=== PATIENT | male | born 1935 | race Caucasian/White ===

== ENCOUNTER 2016-08-13 21:12 | Emergency (ER) | payer MEDICARE, BC ==
[~2016-08-13] VITALS: Ht 172.7 cm; Wt 70.5 kg
[2016-08-13 21:17] VITALS: Ht 172.7 cm; Wt 70.5 kg
[2016-08-13 22:05] LABS: ADD SCAN DIFF NO
--- NOTE | 2016-08-13 22:14 | RADRPT ---
PROCEDURE: XR Chest. CLINICAL INDICATION: Abdominal pain. TECHNIQUE: Single frontal view of the chest was obtained COMPARISON: None FINDINGS: Cardiomegaly and atherosclerotic calcifications in the thoracic aorta. Mild attenuation at the left lung base likely represents overlying soft tissues. The lungs are otherwise clear. There is no pleural effusion or pneumothorax. IMPRESSION: No acute disease. RPTAT: UU Physician Pat Date Time Electronically viewed and signed by Physician Pat on 08/13/2016 22:14 RS/
[2016-08-13 22:17] LABS: BASOPHILS % 0.4 % (0.0-2.0); EOSINOPHILS # 0.1 10^3/ul (0.0-0.5); EOSINOPHILS % 1.2 % (0.0-7.0); HEMATOCRIT 50.1 % (42.0-52.0); HEMOGLOBIN 16.7 g/dl (14.0-18.0); LYMPHOCYTES # 0.7 10^3/ul (0.8-2.9); LYMPHOCYTES % 8.8 % (15.0-51.0); MEAN CORPUSCULAR HEMOGLOBIN 31.3 pg (29.0-33.0); MEAN CORPUSCULAR HGB CONC 33.3 g/dl (32.0-37.0); MEAN PLATELET VOLUME 9.6 fl (7.4-10.4); MONOCYTE # 1.1 10^3/ul (0.3-0.9); MONOCYTES % 12.7 % (0.0-11.0); NEUTROPHIL # 6.4 10^3/ul (1.6-7.5); NEUTROPHILS % 76.4 % (39.0-77.0); PLATELET COUNT 186 10^3/UL (140-415); RED BLOOD COUNT 5.33 10^6/ul (4.70-6.10); RED CELL DISTRIBUTION WIDTH 12.8 % (11.5-14.5); WHITE BLOOD COUNT 8.3 10^3/ul (4.8-10.8)
[2016-08-13 22:20] LABS: ALBUMIN 4.7 g/dl (3.3-4.9)
[2016-08-13 22:21] LABS: POTASSIUM 4.5 mmol/L (3.5-5.1)
[2016-08-13 22:23] LABS: ALBUMIN/GLOBULIN RATIO 1.27; BILIRUBIN,INDIRECT 0.4 mg/dl (0-1.1); BILIRUBIN,TOTAL 0.4 mg/dl (0.2-1.3); CREATININE 1.01 mg/dl (0.61-1.24); TOTAL PROTEIN 8.4 g/dl (6.1-8.1)
[2016-08-13 22:24] LABS: CALCIUM 9.6 mg/dl (8.4-10.2)
--- NOTE | 2016-08-13 22:24 | RADRPT ---
PROCEDURE: CT Head without contrast. CLINICAL INDICATION: Altered mental status TECHNIQUE: The study was performed utilizing a GE 64-slice multidetector CT scanner. Direct spiral axial CT images of the brain were obtained from the vertex to the skull base without contrast. Mariana nal and sagittal reformatted images are provided. The CTDI vol is 123.13 mGy and the DLP is 749.79 m Gy-cm. The images were reviewed on a PACS workstation. COMPARISON: No prior studies are available for comparison. FINDINGS: Exam is limited secondary to motion artifact. Moderate diffuse atrophy is seen with a compensatory ventricular enlargement. Mild to moderate white matter disease in the periventricular and deep whit e matter is seen. Small chronic lacunar infarcts are seen in the left basal ganglia and right cerebe llar hemisphere. The marks-white matter differentiation is maintained. No intra or extra-axial flui d collection or mass effect or shift in the midline structures is seen. The visualized paranasal si nuses, mastoid air cells, orbits, and calvarium are unremarkable. Vascular calcifications are seen. IMPRESSION: 1. Limited examination secondary to motion artifact. Otherwise, no acute intracranial pathology. 2. Moderate diffuse volume loss and mild to moderate chronic microvascular ischemic changes. 3. Small left basal ganglia and right cerebellar hemisphere lacunar infarcts. RPTAT: HPNM Physician Michelle Date Time Electronically viewed and signed by Physician Michelle on 08/13/2016 22:24 /
[2016-08-13] MEDS ORDERED: AMLO-147 PO (22:28)
[2016-08-13] MEDS ORDERED: METO100T13 PO (22:28)
[2016-08-13] MEDS ORDERED: CELE100C PO (22:29)
[2016-08-13] MEDS ORDERED: EZET1TAB9 PO (22:29)
[2016-08-13] MEDS ORDERED: ASPI-664 PO (22:31)
[2016-08-13] MEDS ORDERED: HERB1CAP PO (22:32)
[2016-08-13] MEDS ORDERED: MIRA50TA PO (22:34)
[2016-08-13 22:35] LABS: TROPONIN-I 0.014 ng/ml (0.00-0.12)
[2016-08-13] MEDS ORDERED: CHOL100062 PO (22:35)
[2016-08-13] MEDS ORDERED: [UNRECOGNIZED DRUG - OTHER] PO (23:13)
--- NOTE | 2016-08-13 23:59 | ERD ---
ER Documentation Chief Complaint Date/Time DATE: 08/13/16 TIME: 23:58 Chief Complaint s/p fall X3 within 24-hour period,leaning towards left side,denies [place] HPI This is an 80-year-old male has fallen 3 times the past 24 hours secondary to weakness. Patient denies any headache or any focal neurologic complaints. Patient has history of old strokes in the past. Denies any fevers or chills. Denies any chest pain. Denies any other current issues. ROS All systems reviewed and are negative except as per history of present illness. Medications Home Meds Reported Medications [Ultra Supplements] No Conflict Check, 1 TAB PO DAILY 08/13/16 Cholecalciferol* (Vitamin D3*) 1,000 Unit Tablet, 1000 UNIT PO DAILY, TAB 08/13/16 Mirabegron (Myrbetriq) 50 Mg Tab.er.24h, 25 MG PO DAILY, TAB 08/13/16 Herbal Drugs (Colon Herbal Cleanser) 1 Each Capsule, 1 EACH PO DAILY, CAP 08/13/16 Aspirin* (Aspirin* EC) 81 Mg Tablet.dr, 81 MG PO DAILY, TAB 08/13/16 Celecoxib* (Celebrex*) 100 Mg Capsule, 100 MG PO BID, CAP 08/13/16 Ezetimibe/Simvastatin (Vytorin 10-20 mg Tablet) 1 Each Tablet, 1 EACH PO DAILY, TAB 08/13/16 Amlodipine Besylate* (Amlodipine Besylate*) 10 Mg Tablet, 10 MG PO DAILY, #30 TAB 08/13/16 Metoprolol Succinate* (Toprol XL*) 100 Mg Tab.sr.24h, 100 MG PO DAILY, #30 TAB 08/13/16 Allergies Allergies: Coded Allergies: No Known Allergy (Unverified , 08/13/16) PMhx/Soc History of Surgery: Yes (patient states about 10 surgeries, cant recall what) Anesthesia Reaction: No Hx Neurological Disorder: Yes (stroke) Hx Respiratory Disorders: No Hx Psychiatric Problems: No Hx Miscellaneous Medical Probl: Yes (prostate issues) Hx Alcohol Use: No Hx Substance Use: No Hx Tobacco Use: No Smoking Status: Never smoker Physical Exam Vitals Vital Signs Date Time Temp Pulse Resp B/P Pulse Ox O2 Delivery O2 Flow Rate FiO2 08/13/16 21:26 86 25 147/93 96 Room Air 08/13/16 21:17 98.2 86 21 147/93 97 Physical Exam Const: [] Head: Atraumatic Eyes: Normal Conjunctiva ENT: Normal External Ears, Nose and Mouth. Neck: Full range of motion..~ No meningismus. Resp: Clear to auscultation bilaterally Cardio: Regular rate and rhythm, no murmurs Abd: Soft, non tender, non distended. Normal bowel sounds Skin: No petechiae or rashes Back: No midline or flank tenderness Ext: No cyanosis, or edema Neur: Awake and alert Psych: Normal Mood and Affect Result Diagram: 08/13/16214408/13/162144 Results 24 hrs Laboratory Tests Test 08/13/16 21:15 08/13/16 21:45 Bedside Glucose 137mg/dL Alanine Aminotransferase (ALT/SGPT) 63IU/L Albumin 4.7g/dl Albumin/Globulin Ratio 1.27 Alkaline Phosphatase 74IU/L Anion Gap 20 Aspartate Amino Transf (AST/SGOT) 72IU/L Basophils # 0.010^3/ul Basophils % 0.4% Blood Urea Nitrogen 21mg/dl Calcium Level 9.6mg/dl Carbon Dioxide Level 25mmol/L Chloride Level 99mmol/L Creatinine 1.01mg/dl Direct Bilirubin 0.00mg/dl Eosinophils # 0.110^3/ul Eosinophils % 1.2% Globulin 3.70g/dl Glucose Level 134mg/dl Hematocrit 50.1% Hemoglobin 16.7g/dl Indirect Bilirubin 0.4mg/dl Lipase 49U/L Lymphocytes # 0.710^3/ul Lymphocytes % 8.8% Mean Corpuscular Hemoglobin 31.3pg Mean Corpuscular Hemoglobin Concent 33.3g/dl Mean Corpuscular Volume 94.0fl Mean Platelet Volume 9.6fl Monocytes # 1.110^3/ul Monocytes % 12.7% Neutrophils # 6.410^3/ul Neutrophils % 76.4% Nucleated Red Blood Cells # 0.010^3/ul Nucleated Red Blood Cells % 0.0/100WBC Platelet Count 55566^3/UL Potassium Level 4.5mmol/L Red Blood Count 5.3310^6/ul Red Cell Distribution Width 12.8% Sodium Level 139mmol/L Total Bilirubin 0.4mg/dl Total Protein 8.4g/dl Troponin I 0.014ng/ml White Blood Count 8.310^3/ul Current Medications Medications (Trade) Dose Ordered Sig/Fidelina Route PRN Reason Start Time Stop Time Status Last Admin Dose Admin Hydrocodone Bit/ Homatropine Methylb (Hycodan Liquid) 10 ml ONCE ONCE PO 08/14/16 00:00 08/14/16 00:01 Acetaminophen/ Codeine Phosphate (Tylenol/Codeine Liquid) 10 ml ONCE ONCE PO 08/14/16 00:00 08/14/16 00:01 08/13/16 23:53 Procedures/MDM EKG: Rate/Rhythm: Variable DC and QT intervals. Heart rate variable QRS, ST, T-waves: No changes consistent w/ acute ischemia Impression: Atrial fibrillation Chest X-ray 1V Interpreted by me: Soft Tissue: No acute abnormalities Bones: No acute abnormalities Mediastinum/Cardiac Silhouette/Lungs: No acute abnormalities Medical decision-making: A 1-year-old gentleman with what looks to be new onset A. fib. Patient will be admitted to telemetry to hospitalist. Departure Diagnosis: Primary Impression: Acute weakness Additional Impression: Atrial fibrillation, new onset Condition: Serious FELICE ODOM Aug 13, 2016 23:59
[2016-08-14] MEDS ORDERED: HYDROCODONE/HOMATROPINE 5ML CUP PO ONE
[2016-08-14] MEDS ORDERED: ACETAMINOPHEN/CODEINE 5 ML CUP PO ONE
--- NOTE | 2016-08-14 00:12 | HP ---
Date/Time of Note Date/Time of Note DATE: 08/14/16 TIME: 00:11 Assessment/Plan VTE Prophylaxis VTE Prophylaxis Intervention: other (Patient left AMA.) HPI/ROS Admit Date/Time Admit Date/Time Hx of Present Illness I opened this note prior to going to the ER to see patient, but he left AMA before I ever saw him. PMH/Family/Social Social History Smoking Status: Never smoker Exam/Review of Systems Vital Signs Vitals Vital Signs Date Time Temp Pulse Resp B/P Pulse Ox O2 Delivery O2 Flow Rate FiO2 08/13/16 21:26 86 25 147/93 96 Room Air 08/13/16 21:17 98.2 Labs Result Diagram: 08/13/165 08/13/16 2145 JAIR RAJAN MD Aug 14, 2016 00:12
[2016-08-14 00:14] VITALS: BP 130/91; PULSE 87; RESP 26; TEMP 97.7
[2016-08-14] MEDS ORDERED: NITROGLYCERIN (SL) 0.4 MG TAB SL PRN (00:30)
[2016-08-14] MEDS ORDERED: NACL 0.9% 3 ML SYG IV SCH (00:30)
[2016-08-14] MEDS ORDERED: METOCLOPRAMIDE 10 MG INJ IV PRN (00:30)
[2016-08-14] MEDS ORDERED: ACETAMINOPHEN 325 MG TAB PO PRN (00:30)
[2016-08-14] MEDS ORDERED: FAMOTIDINE 20 MG INJ IV SCH (09:00)
== END 2016-08-14 00:32 | disposition left against medical advice (07) ==
LOC: E/R 21:12
DX: R53.1 Weakness (principal); I48.91 Unspecified atrial fibrillation; T07 Unspecified multiple injuries; R41.82 Altered mental status, unspecified; W19.XXXA Unspecified fall, initial encounter; Y92.9 Unspecified place or not applicable
CPT/HCPCS: 36415; 70450; 71010; 80053; 82962; 83690; 84484; 85025; 93005

== ENCOUNTER 2017-04-17 19:03 | Inpatient (IN) | payer MEDICARE, BC ==
[~2017-04-17] VITALS: Ht 170.2 cm; Wt 89.0 kg
[~2017-04-17 19:03] MED LIST: AMLO-147 PO; ASPI-664 PO; CELE100C PO; CHOL100062 PO; EZET1TAB9 PO; HERB1CAP PO; METO-336 PO; MIRA50TA PO; [UNRECOGNIZED DRUG - OTHER] PO
[2017-04-17] MEDS ORDERED: CEFEPIME 2GM/50 ML (PMX) 50 ML IVPB STA (19:06)
[2017-04-17] MEDS ORDERED: morphine 4 MG/ML VIAL IV STA (19:11)
[2017-04-17] MEDS ORDERED: ONDANSETRON 4 MG INJ IV STA (19:11)
[2017-04-17] MEDS ORDERED: SODIUM CHLORIDE 0.9% 1L BAG IV* STA (19:11)
[2017-04-17] MEDS ORDERED: ACETAMINOPHEN 325 MG TAB PO ONE (19:30)
[2017-04-17] MEDS ORDERED: VANCOMYCIN 1 GM (PMX) 250 ML IVPB ONE (19:30)
[2017-04-17 19:31] LABS: BASOPHIL # 0.1 10^3/ul (0.0-0.1); BASOPHILS % 0.4 % (0.0-2.0); EOSINOPHILS # 0.1 10^3/ul (0.0-0.5); EOSINOPHILS % 0.8 % (0.0-7.0); HEMOGLOBIN 16.8 g/dl (14.0-18.0); LYMPHOCYTES # 1.5 10^3/ul (0.8-2.9); LYMPHOCYTES % 9.3 % (15.0-51.0); MEAN CORPUSCULAR HEMOGLOBIN 31.9 pg (29.0-33.0); MEAN CORPUSCULAR HGB CONC 34.3 g/dl (32.0-37.0); MEAN PLATELET VOLUME 9.5 fl (7.4-10.4); MONOCYTE # 0.9 10^3/ul (0.3-0.9); MONOCYTES % 5.5 % (0.0-11.0); NEUTROPHIL # 13.5 10^3/ul (1.6-7.5); NEUTROPHILS % 83.6 % (39.0-77.0); PLATELET COUNT 222 10^3/UL (140-415); RED BLOOD COUNT 5.27 10^6/ul (4.70-6.10); RED CELL DISTRIBUTION WIDTH 12.2 % (11.5-14.5); WHITE BLOOD COUNT 16.2 10^3/ul (4.8-10.8)
[2017-04-17 19:46] LABS: INR 0.91; PROTIME 12.2 Sec (12.2-14.2)
[2017-04-17 19:47] LABS: PARTIAL THROMBOPLASTIN TIME 29.6 Sec (25.0-35.0)
[2017-04-17 19:52] LABS: ALANINE AMINOTRANSFERASE 39 IU/L (13-69); ALBUMIN 4.8 g/dl (3.3-4.9); ALBUMIN/GLOBULIN RATIO 1.37; ALKALINE PHOSPHATASE 90 IU/L (42-121); ANION GAP 17 (8-16); ASPARTATE AMINO TRANSFERASE 40 IU/L (15-46); BILIRUBIN,INDIRECT 0.4 mg/dl (0-1.1); BILIRUBIN,TOTAL 0.4 mg/dl (0.2-1.3); BLOOD UREA NITROGEN 16 mg/dl (7-20); CALCIUM 9.7 mg/dl (8.4-10.2); CARBON DIOXIDE 26 mmol/L (21-31); CHLORIDE 103 mmol/L (97-110); CREATININE 1.01 mg/dl (0.61-1.24); GLUCOSE 133 mg/dl (70-220); POTASSIUM 4.4 mmol/L (3.5-5.1); SODIUM 142 mmol/L (135-144); TOTAL PROTEIN 8.3 g/dl (6.1-8.1)
[2017-04-17 20:04] LABS: TROPONIN-I < 0.012 ng/ml (0.00-0.12)
--- NOTE | 2017-04-17 20:12 | RADRPT ---
PROCEDURE: XR Chest. CLINICAL INDICATION: Possible Sepsis TECHNIQUE: Single frontal view of the chest. COMPARISON: Chest radiograph dated August 13, 2016. FINDINGS: The cardiomediastinal silhouette is within normal limits. Aortic calcifications are present. There are no definite focal consolidations. There is obscuration of the left hemidiaphragm. There are degenerative changes of the spine and shoulder joints. IMPRESSION: 1. Obscuration of the left hemidiaphragm may be due to a small left pleural effusion. 2. No focal consolidations. RPTAT:AAJJ Physician Carlin Date Time Electronically viewed and signed by Physician Carlin on 04/17/2017 20:12 QL/
--- NOTE | 2017-04-17 20:52 | RADRPT ---
PROCEDURE: CT Abdomen and Pelvis without contrast. CLINICAL INDICATION: Abdominal pain TECHNIQUE: CT of the abdomen and pelvis was performed on a multi-detector scanner without IV contr ast. Coronal and sagittal images were reformatted from the axial data set. One or more of the foll owing dose reduction techniques were used: automated exposure control, adjustment of the mA and/or k V according to patient size, use of iterative reconstruction technique. CTDI = 18.76 mGy. DLP = 117 8.35 mGy-cm. COMPARISON: None. FINDINGS: The lung bases are clear. The heart size is normal, without pericardial effusion. Coronary arteria l calcifications are noted. The liver is fatty infiltrated, without evidence of focal mass. Gallblad lynn, biliary tree, pancreas, spleen, adrenal glands and kidneys are unremarkable. No urolithiasis or obstructive uropathy is identified. Small hiatal hernia is noted. The stomach is otherwise grossly unremarkable. The aorta is of normal caliber. Aortic vascular calcifications are present. There is no retroperit yarbrough lymphadenopathy. The aura hepatis region is clear. No bowel obstruction, free intraperitoneal air or abscess is identified. Sigmoid diverticulosis is s een without diverticulitis. The appendix is well visualized and normal. There is no colitis. Urinary bladder is grossly unremarkable. No pelvic mass, free fluid or lymphadenopathy is identified. The surrounding osseous structures are remarkable for degenerative enthesopathy of the spine. No os teolytic or osteoblastic lesion is detected. IMPRESSION: 1. Diffuse coronary arterial and aortoiliac atherosclerotic calcification is present. 2. Hepatic steatosis is noted. 3. Small hiatal hernia is identified. 4. Sigmoid diverticulosis is seen without diverticulitis. 5. No mass, lymphadenopathy, or focal acute inflammatory process is identified. RPTAT: HDWR .Jason Mills MD, MD Date Time Electronically viewed and signed by .Jason Mills MD, MD on 04/17/2017 20:52 .R/
[2017-04-17] MEDS ORDERED: ACETAMINOPHEN 325 MG TAB PO PRN (22:00)
[2017-04-17] MEDS ORDERED: ONDANSETRON 4 MG INJ IV PRN (22:00)
[2017-04-17 22:32] LABS: ADD UMIC YES; UR ASCORBIC ACID NEGATIVE (NEGATIVE); UR BACTERIA FEW /HPF (NONE SEEN); UR BILIRUBIN (Dip) NEGATIVE (NEGATIVE); UR BLOOD (Dip) 2+ mg/dL (NEGATIVE); UR CLARITY CLOUDY (CLEAR); UR COLOR YELLOW (YELLOW); UR GLUCOSE (Dip) NEGATIVE (NEGATIVE); UR KETONES (Dip) TRACE mg/dL (NEGATIVE); UR LEUKOCYTE ESTERASE (Dip) 3+ Leu/ul (NEGATIVE); UR NITRITE (Dip) NEGATIVE (NEGATIVE); UR RBC 21 /HPF (0-5); UR SPECIFIC GRAVITY (Dip) 1.023 (1.003-1.030); UR SQUAMOUS EPITHELIAL CELL FEW /HPF (FEW); UR TOTAL PROTEIN (Dip) 1+ mg/dl (NEGATIVE); UR UROBILINOGEN (Dip) NEGATIVE (NEGATIVE)
--- NOTE | 2017-04-17 22:51 | ERD ---
ER Documentation Chief Complaint Chief Complaint LUKASZ [id number] from home,c/o generalized weakness HPI Patient is an 81-year-old male who presents confused. Please note the history and physical exam is limited secondary to the patient's confusion. The patient was brought in by ambulance. He says that he has "fluid". He has bilateral lower extremity edema. He has frequent urination. He denies fevers. He has had cough but no shortness of breath. He does not remember the name of his primary doctor. Upon review of old medical records this is the patient's third visit to the ER since 2005. ROS All systems reviewed and are negative except as per history of present illness. Medications Home Meds Reported Medications Cholecalciferol* (Vitamin D3*) 1,000 Unit Tablet, 1000 UNIT PO DAILY, TAB 08/13/16 Mirabegron (Myrbetriq) 50 Mg Tab.er.24h, 25 MG PO DAILY, TAB 08/13/16 Herbal Drugs (Colon Herbal Cleanser) 1 Each Capsule, 1 EACH PO DAILY, CAP 08/13/16 Aspirin* (Aspirin* EC) 81 Mg Tablet.dr, 81 MG PO DAILY, TAB 08/13/16 Celecoxib* (Celebrex*) 100 Mg Capsule, 100 MG PO BID, CAP 08/13/16 Ezetimibe/Simvastatin (Vytorin 10-20 mg Tablet) 1 Each Tablet, 1 EACH PO DAILY, TAB 08/13/16 Amlodipine Besylate* (Amlodipine Besylate*) 10 Mg Tablet, 10 MG PO DAILY, #30 TAB 08/13/16 Metoprolol Succinate* (Toprol XL*) 100 Mg Tab.sr.24h, 100 MG PO DAILY, #30 TAB 08/13/16 Discontinued Reported Medications [Ultra Supplements] No Conflict Check, 1 TAB PO DAILY 08/13/16 Allergies Allergies: Coded Allergies: No Known Allergy (Unverified , 08/13/16) PMhx/Soc History of Surgery: Yes (patient states about 10 surgeries, cant recall what) Anesthesia Reaction: No Hx Neurological Disorder: Yes (stroke) Hx Respiratory Disorders: No Hx Psychiatric Problems: No Hx Miscellaneous Medical Probl: Yes (prostate issues) Hx Alcohol Use: No Hx Substance Use: No Hx Tobacco Use: No Smoking Status: Never smoker FmHx Family History: No diabetes Physical Exam Vitals Vital Signs Date Time Temp Pulse Resp B/P Pulse Ox O2 Delivery O2 Flow Rate FiO2 04/17/17 19:06 100.8 103 18 163/91 96 Physical Exam Const: Confused Head: Atraumatic Eyes: Normal Conjunctiva ENT: Normal External Ears, Nose and Mouth. Neck: Full range of motion..~ No meningismus. Resp: Clear to auscultation bilaterally Cardio: Regular rate and rhythm, no murmurs Abd: Soft, non tender, non distended. Normal bowel sounds Skin: No petechiae or rashes Back: No midline or flank tenderness Ext: Bilateral lower extremity edema Neur: Awake but confused Result Diagram: 04/17/17190404/17/171904 Results 24 hrs Laboratory Tests Test 04/17/17 19:05 04/17/17 21:00 04/17/17 22:00 White Blood Count 16.210^3/ul Red Blood Count 5.2710^6/ul Hemoglobin 16.8g/dl Hematocrit 49.0% Mean Corpuscular Volume 93.0fl Mean Corpuscular Hemoglobin 31.9pg Mean Corpuscular Hemoglobin Concent 34.3g/dl Red Cell Distribution Width 12.2% Platelet Count 54578^3/UL Mean Platelet Volume 9.5fl Neutrophils % 83.6% Lymphocytes % 9.3% Monocytes % 5.5% Eosinophils % 0.8% Basophils % 0.4% Nucleated Red Blood Cells % 0.0/100WBC Neutrophils # 13.510^3/ul Lymphocytes # 1.510^3/ul Monocytes # 0.910^3/ul Eosinophils # 0.110^3/ul Basophils # 0.110^3/ul Nucleated Red Blood Cells # 0.010^3/ul Prothrombin Time 12.2Sec Prothrombin Time Ratio 1.0 INR International Normalized Ratio 0.91 Activated Partial Thromboplast Time 29.6Sec Sodium Level 142mmol/L Potassium Level 4.4mmol/L Chloride Level 103mmol/L Carbon Dioxide Level 26mmol/L Anion Gap 17 Blood Urea Nitrogen 16mg/dl Creatinine 1.01mg/dl Glucose Level 133mg/dl Lactic Acid Level 1.9mmol/L 1.6mmol/L Calcium Level 9.7mg/dl Total Bilirubin 0.4mg/dl Direct Bilirubin 0.00mg/dl Indirect Bilirubin 0.4mg/dl Aspartate Amino Transf (AST/SGOT) 40IU/L Alanine Aminotransferase (ALT/SGPT) 39IU/L Alkaline Phosphatase 90IU/L Troponin I < 0.012ng/ml Total Protein 8.3g/dl Albumin 4.8g/dl Globulin 3.50g/dl Albumin/Globulin Ratio 1.37 Urine Color YELLOW Urine Clarity CLOUDY Urine pH 5.0 Urine Specific [place] 1.023 Urine Ketones TRACEmg/dL Urine Nitrite NEGATIVEmg/dL Urine Bilirubin NEGATIVEmg/dL Urine Urobilinogen NEGATIVEmg/dL Urine Leukocyte Esterase 3+Aiden/ul Urine Microscopic RBC 21/HPF Urine Microscopic WBC > 182/HPF Urine Squamous Epithelial Cells FEW/HPF Urine Bacteria FEW/HPF Urine Hemoglobin 2+mg/dL Urine Glucose NEGATIVEmg/dL Urine Total Protein 1+mg/dl Current Medications Medications (Trade) Dose Ordered Sig/Fidelina Route PRN Reason Start Time Stop Time Status Last Admin Dose Admin Cefepime HCl 50 ml @ 100 mls/hr ONCE STAT IVPB 04/17/17 19:06 04/17/17 19:35 DC 04/17/17 19:39 Vancomycin HCl (Vancocin) 250 ml @ 125 mls/hr ONCE ONCE IVPB 04/17/17 19:30 04/17/17 21:29 DC 04/17/17 19:30 Acetaminophen (Tylenol Tab) 650 mg ONCE ONCE PO 04/17/17 19:30 04/17/17 19:31 DC 04/17/17 19:37 Morphine Sulfate (morphine) 4 mg ONCE STAT IV 04/17/17 19:11 04/17/17 19:12 DC 04/17/17 19:36 Ondansetron HCl (Zofran Inj) 4 mg ONCE STAT IV 04/17/17 19:11 04/17/17 19:12 DC 04/17/17 19:36 Sodium Chloride (NS) 2,250 ml BOLUS OVER 2 HOURS STAT IV* 04/17/17 19:11 04/17/17 19:42 DC 04/17/17 19:36 Ondansetron HCl (Zofran Inj) 4 mg BRIDGE ORDER PRN IV NAUSEA AND/OR VOMITING 04/17/17 22:00 04/18/17 21:59 Acetaminophen (Tylenol Tab) 650 mg ER BRIDGE PRN PO MILD PAIN/FEVER 04/17/17 22:00 11/9/17 21:59 Procedures/MDM CT abdomen and pelvis is negative for intra-abdominal process per radiology. Patient is an 81-year-old male presents with confusion. The patient was found to have acute cystitis which I believe is likely the cause of his confusion. He also has fluid on the lower extremities bilaterally. The patient was given broad-spectrum antibiotics. I doubt sepsis or septic shock. The patient will need admission to the hospital for continued antibiotics given his age and confusion. The patient will be admitted to Dr. Mahan from the panel team to a medical surgical bed. Other laboratory studies were normal. Lactic acid was normal. Departure Diagnosis: Primary Impression: Cystitis Additional Impressions: Acute weakness Confusion Condition: CARLOS Kat MD Apr 17, 2017 22:51
[2017-04-17 23:47] VITALS: TEMP 100.8
[2017-04-18 00:15] VITALS: BP 135/81; PULSE 85; RESP 18
[2017-04-18] MEDS ORDERED: CELE100C PO (00:39)
[2017-04-18 00:56] VITALS: Ht 170.2 cm; Wt 89.0 kg
[2017-04-18] MEDS ORDERED: CELECOXIB 100 MG CAP PO PRN (01:00)
[2017-04-18] MEDS ORDERED: ONDANSETRON 4 MG INJ IV PRN (01:00)
[2017-04-18] MEDS ORDERED: morphine 2 MG INJ IV PRN (01:00)
[2017-04-18] MEDS ORDERED: ALBUMIN HUMAN 25% 100 ML IV ONE (01:00)
[2017-04-18 03:16] VITALS: BP 119/58; RESP 20
--- NOTE | 2017-04-18 05:47 | HP ---
Date/Time of Note Date/Time of Note DATE: 04/18/17 TIME: 05:41 Assessment/Plan VTE Prophylaxis VTE Prophylaxis Intervention: heparin, SCD's Lines/Catheters IV [facility] Urinary Cath still in place: No Assessment/Plan Assessment/Plan 1. Sepsis, as evidenced by fever, leukocytosis and tachycardia, secondary to UTI -IV antibiotic and IV fluids -Follow-up culture results 2. Altered mentation, most likely secondary to above: -will treat with sepsis. -will obtain head CT 3. Bilateral lower extremity swelling -Obtain a 2D echo and BNP 4. History of hypertension: Currently BP within goal -Continue antihypertensives adjustment as needed HPI/ROS Admit Date/Time Admit Date/Time Apr 17, 2017 at 21:56 Hx of Present Illness This is an 81-year-old male with history of hypertension, dyslipidemia, arthritis who was brought to the emergency department complaining of bilateral lower extremity swelling, fever and altered mentation. Patient unable to give meaningful history, but reported frequent urination and progressively worsening bilateral lower extremity swelling. When he comes to the ER, he was febrile with a temperature of 100.8, heart rate 103. Labs shows a WBC of 16,000 and lactic acid of 2.2. Urinalysis is consistent with UTI. PMH/Family/Social Social History Smoking Status: Never smoker Exam/Review of Systems Vital Signs Vitals Vital Signs Date Time Temp Pulse Resp B/P Pulse Ox O2 Delivery O2 Flow Rate FiO2 04/18/17 03:16 98.8 92 20 119/58 92 04/18/17 00:15 Room Air Exam Constitutional: other (Confused and not fully oriented) Head: atraumatic, normocephalic Eyes: PERRL Respiratory: clear to auscultation Cardiovascular: other (Tachycardic with regular rhythm) Gastrointestinal: soft Extremities: edema Labs Result Diagram: 04/17/17190404/17/171904 Medications Medications Current Medications Amlodipine Besylate (Norvasc) 10 mg DAILY PO ; Start 04/18/17 at 09:00 Aspirin (Halfprin) 81 mg DAILY PO ; Start 04/18/17 at 09:00 Celecoxib (Celebrex) 100 mg DAILY PRN PO PAIN; Start 04/18/17 at 01:00 Cholecalciferol (Vitamin D) 1,000 unit DAILY PO ; Start 04/18/17 at 09:00 Miscellaneous Information 1 each DAILY PO ; Start 04/18/17 at 09:00; Status UNV Miscellaneous Information 25 mg 25 mg DAILY PO ; Start 04/18/17 at 09:00; Status UNV Ceftriaxone Sodium (Rocephin) 50 ml @ 100 mls/hr Q12 IVPB ; Start 04/18/17 at 09:00 Acetaminophen (Tylenol Tab) 650 mg Q6H PRN PO PAIN AND OR ELEVATED TEMP; Start 04/18/17 at 01:00 Ondansetron HCl (Zofran Inj) 4 mg Q6H PRN IV NAUSEA AND/OR VOMITING; Start 04/18/17 at 01:00 Morphine Sulfate (morphine) 2 mg Q4H PRN IV PAIN; Start 04/18/17 at 01:00 Heparin Sodium (Porcine) (Heparin (5000 Units/0.5 ml)) 5,000 unit BID SC ; Start 04/18/17 at 09:00 FELICE FUENTES MD Apr 18, 2017 05:47
[2017-04-18 06:06] LABS: BASOPHIL # 0.1 10^3/ul (0.0-0.1); BASOPHILS % 0.3 % (0.0-2.0); EOSINOPHILS # 0.1 10^3/ul (0.0-0.5); EOSINOPHILS % 0.4 % (0.0-7.0); HEMATOCRIT 40.6 % (42.0-52.0); HEMOGLOBIN 13.9 g/dl (14.0-18.0); LYMPHOCYTES # 1.1 10^3/ul (0.8-2.9); MEAN CORPUSCULAR HEMOGLOBIN 31.9 pg (29.0-33.0); MEAN CORPUSCULAR HGB CONC 34.2 g/dl (32.0-37.0); MEAN CORPUSCULAR VOLUME 93.1 fl (82.0-101.0); MEAN PLATELET VOLUME 9.7 fl (7.4-10.4); MONOCYTE # 1.2 10^3/ul (0.3-0.9); MONOCYTES % 6.6 % (0.0-11.0); NEUTROPHIL # 15.8 10^3/ul (1.6-7.5); PLATELET COUNT 176 10^3/UL (140-415); RED BLOOD COUNT 4.36 10^6/ul (4.70-6.10); RED CELL DISTRIBUTION WIDTH 12.4 % (11.5-14.5); WHITE BLOOD COUNT 18.4 10^3/ul (4.8-10.8)
[2017-04-18 06:38] LABS: ALBUMIN 3.8 g/dl (3.3-4.9); ALBUMIN/GLOBULIN RATIO 1.4; BILIRUBIN,INDIRECT 0.7 mg/dl (0-1.1); BILIRUBIN,TOTAL 0.7 mg/dl (0.2-1.3); CALCIUM 9.1 mg/dl (8.4-10.2); CREATININE 0.92 mg/dl (0.61-1.24); MAGNESIUM 1.8 mg/dl (1.7-2.5); PHOSPHORUS 2.9 mg/dl (2.5-4.9); POTASSIUM 4.1 mmol/L (3.5-5.1); TOTAL PROTEIN 6.5 g/dl (6.1-8.1)
[2017-04-18 08:32] VITALS: BP 125/60; RESP 18
--- NOTE | 2017-04-18 08:34 | RADRPT ---
PROCEDURE: CT Brain without contrast. CLINICAL INDICATION: Altered mental status. TECHNIQUE: A CT of the brain was performed on a multidetector CT scanner utilizing axial imaging f rom the skull base through the vertex without IV contrast. Multiplanar reformatted images were made . Images were reviewed on a PACS workstation. The CTDIvol is 45 mGy and the DLP is with 720 mGycm. One or more of the following dose reduction techniques were utilized: 1.) Automated exposure control 2.) Adjustment of the mA +/- kV according to patient's size 3.) Use of iterative reconstruction technique. COMPARISON: [address] August 13, 2016 FINDINGS: There is moderate to severe diffuse cerebral volume loss with sulcal and ventricular dilatation. No discrete extra-axial fluid collection or mass is visualized. The ventricles are in the midline. Ther e is periventricular white matter disease in both cerebral hemispheres. No associated mass effect is present. Chronic left basal ganglia lacunar infarct is identified. There is preservation of normal marks-white distinction. No intracranial hemorrhage is noted. There is normal aeration of the visuali zed paranasal sinuses. IMPRESSION: Atrophy with white matter disease compatible with chronic small vessel ischemia. Chronic left basal ganglia lacunar infarct. No intracranial hemorrhage, mass or acute infarct. .Sumanth Vasquez MD, MD Date Time Electronically viewed and signed by .Sumanth Vasquez MD, MD on 04/18/2017 08:34 .A/
[2017-04-18] MEDS: ACETAMINOPHEN 325 MG TAB PO PRN (08:41)
[2017-04-18] MEDS: CHOLECALCIFEROL 1,000 UNIT TAB PO SCH (08:41)
[2017-04-18] MEDS: CEFTRIAXONE 1 GM/50 ML (PMX) 50 ML IVPB SCH ×2 (08:41→20:31)
[2017-04-18] MEDS: ASPIRIN (EC) 81 MG TAB PO SCH (08:41)
[2017-04-18] MEDS: AMLODIPINE 10 MG TAB PO SCH (08:41)
[2017-04-18] MEDS: HEPARIN 5,000 UNIT/0.5 ML VIAL SC SCH ×2 (09:00→20:34)
[2017-04-18] MEDS ORDERED: MIRABEGRON 25 MG PO SCH (09:00)
[2017-04-18] MEDS ORDERED: EZETIMIBE PO SCH (09:00)
[2017-04-18] MEDS ORDERED: SIMVASTATIN PO SCH (09:00)
[2017-04-18 14:07] VITALS: BP 135/63; RESP 18
--- NOTE | 2017-04-18 14:41 | PN ---
Date/Time of Note Date/Time of Note DATE: 04/18/17 TIME: 14:36 Assessment/Plan VTE Prophylaxis VTE Prophylaxis Intervention: LMWH Lines/Catheters [facility] Saline Lock Urinary Cath still in place: No Assessment/Plan Assessment/Plan 1. UTI, on rocephin, follow up with culture 2. Sepsis, improving on IVF 3. HTN, controlled 4. Dyslipidemia, 5. Acute encephalopathy, sepsis related 6. DVT prophylaxis: lovenox Subjective 24 Hr Interval Summary Free Text/Dictation alert, but confused Exam/Review of Systems Vital Signs Vitals Vital Signs Date Time Temp Pulse Resp B/P Pulse Ox O2 Delivery O2 Flow Rate FiO2 04/18/17 14:07 98.3 91 18 135/63 94 04/18/17 10:47 Nasal Cannula 2.0 Intake and Output 04/17/17 04/17/17 04/18/17 15:00 23:00 07:00 Intake Total 100 ml Balance 100 ml Exam Constitutional: alert, obese Head: atraumatic, normocephalic Eyes: EOMI, PERRL, nl conjunctiva, nl lids, nl sclera ENMT: nl external ears & nose, nl lips & teeth, nl nasal mucosa & septum Neck: non-tender, supple Respiratory: clear to auscultation, normal air movement, No congested cough, No crackles/rales, No diminished breath sounds, No intercostal retraction, No labored breathing, No other, No respirations, No tactile fremitus, No wheezing Cardiovascular: nl pulses, regular rate and rhythm Gastrointestinal: nl liver, spleen, non-tender, soft, No ascites, No bowel sounds, No distended, No firm, No hepatomegaly, No mass , No other, No rebound or guarding, No splenomegaly, No surgical scars, No tender Musculoskeletal: nl extremities to inspection Extremities: normal pulses, No calf tenderness, No clubbing, No cyanosis, No edema, No other, No palpable cord, No pitting pedal edema, No tenderness Neurological: ELECTION CLERK II-XII intact, nl mental status, nl speech, nl strength Skin: nl turgor Results Result Diagram: 04/18/17 0504/18/17 0511 Results 24 hrs Laboratory Tests Test 04/17/17 19:05 04/17/17 21:00 04/17/17 22:00 04/17/17 23:10 White Blood Count 16.2 #H Red Blood Count 5.27 Hemoglobin 16.8 Hematocrit 49.0 Mean Corpuscular Volume 93.0 Mean Corpuscular Hemoglobin 31.9 Mean Corpuscular Hemoglobin Concent 34.3 Red Cell Distribution Width 12.2 Platelet Count 222 Mean Platelet Volume 9.5 Neutrophils % 83.6 H Lymphocytes % 9.3 L Monocytes % 5.5 Eosinophils % 0.8 Basophils % 0.4 Nucleated Red Blood Cells % 0.0 Neutrophils # 13.5 H Lymphocytes # 1.5 Monocytes # 0.9 Eosinophils # 0.1 Basophils # 0.1 Nucleated Red Blood Cells # 0.0 Prothrombin Time 12.2 Prothrombin Time Ratio 1.0 INR International Normalized Ratio 0.91 Activated Partial Thromboplast Time 29.6 Sodium Level 142 Potassium Level 4.4 Chloride Level 103 Carbon Dioxide Level 26 Anion Gap 17 H Blood Urea Nitrogen 16 Creatinine 1.01 Glucose Level 133 Lactic Acid Level 1.9 1.6 2.2 *H Calcium Level 9.7 Total Bilirubin 0.4 Direct Bilirubin 0.00 Indirect Bilirubin 0.4 Aspartate Amino Transf (AST/SGOT) 40 Alanine Aminotransferase (ALT/SGPT) 39 Alkaline Phosphatase 90 Troponin I < 0.012 Total Protein 8.3 H Albumin 4.8 Globulin 3.50 H Albumin/Globulin Ratio 1.37 Urine Color YELLOW Urine Clarity CLOUDY A Urine pH 5.0 Urine Specific [place] 1.023 Urine Ketones TRACE A Urine Nitrite NEGATIVE Urine Bilirubin NEGATIVE Urine Urobilinogen NEGATIVE Urine Leukocyte Esterase 3+ H Urine Microscopic RBC 21 H Urine Microscopic WBC > 182 H Urine Squamous Epithelial Cells FEW Urine Bacteria FEW A Urine Hemoglobin 2+ H Urine Glucose NEGATIVE Urine Total Protein 1+ H Test 04/18/17 05:11 White Blood Count 18.4 H Red Blood Count 4.36 L Hemoglobin 13.9 L Hematocrit 40.6 L Mean Corpuscular Volume 93.1 Mean Corpuscular Hemoglobin 31.9 Mean Corpuscular Hemoglobin Concent 34.2 Red Cell Distribution Width 12.4 Platelet Count 176 # Mean Platelet Volume 9.7 Neutrophils % 86.0 H Lymphocytes % 6.0 L Monocytes % 6.6 Eosinophils % 0.4 Basophils % 0.3 Nucleated Red Blood Cells % 0.0 Neutrophils # 15.8 H Lymphocytes # 1.1 Monocytes # 1.2 H Eosinophils # 0.1 Basophils # 0.1 Nucleated Red Blood Cells # 0.0 Sodium Level 141 Potassium Level 4.1 Chloride Level 106 Carbon Dioxide Level 25 Anion Gap 14 Blood Urea Nitrogen 14 Creatinine 0.92 Glucose Level 130 Lactic Acid Level 1.6 Calcium Level 9.1 Phosphorus Level 2.9 Magnesium Level 1.8 Total Bilirubin 0.7 Direct Bilirubin 0.00 Indirect Bilirubin 0.7 Aspartate Amino Transf (AST/SGOT) 23 Alanine Aminotransferase (ALT/SGPT) 32 Alkaline Phosphatase 56 B-Type Natriuretic Peptide 278 Total Protein 6.5 # Albumin 3.8 # Globulin 2.70 Albumin/Globulin Ratio 1.40 Medications Medications Current Medications Amlodipine Besylate (Norvasc) 10 mg DAILY PO Last administered on 04/18/17 08: 41; Admin Dose 10 MG; Start 04/18/17 at 09:00 Aspirin (Halfprin) 81 mg DAILY PO Last administered on 04/18/17 08:41; Admin Dose 81 MG; Start 04/18/17 at 09:00 Celecoxib (Celebrex) 100 mg DAILY PRN PO PAIN; Start 04/18/17 at 01:00 Cholecalciferol 1000 unit 1,000 unit DAILY PO Last administered on 04/18/17 08 :41; Admin Dose 1,000 UNIT; Start 04/18/17 at 09:00 Ceftriaxone Sodium (Rocephin) 50 ml @ 100 mls/hr Q12 IVPB Last administered on 04/18/17 08:41; Admin Dose 100 MLS/HR; Start 04/18/17 at 09:00 Acetaminophen (Tylenol Tab) 650 mg Q6H PRN PO PAIN AND OR ELEVATED TEMP Last administered on 04/18/17 08:41; Admin Dose 650 MG; Start 04/18/17 at 01:00 Ondansetron HCl (Zofran Inj) 4 mg Q6H PRN IV NAUSEA AND/OR VOMITING; Start 04/18/17 at 01:00 Morphine Sulfate (morphine) 2 mg Q4H PRN IV PAIN Last administered on 05:37; Admin Dose 2 MG; Start 04/18/17 at 01:00 Heparin Sodium (Porcine) (Heparin (5000 Units/0.5 ml)) 5,000 unit BID SC ; Start 04/18/17 at 09:00 Tolterodine Tartrate (Detrol La) 4 mg DAILY PO ; Start 04/19/17 at 09:00 EZETIMIBE (Zetia) 10 mg DAILY@21 PO ; Start 04/18/17 at 21:00 Atorvastatin Calcium (Lipitor) 10 mg DAILY@21 PO ; Start 04/18/17 at 21:00 VILMA MENDEZ MD Apr 18, 2017 14:41
[2017-04-18] MEDS ORDERED: ENOXAPARIN 30 MG/0.3 ML SYG SC SCH (15:00)
--- NOTE | 2017-04-18 15:27 | RADRPT ---
Echocardiogram Report Patient Name: ABI BRAVO Gender: Male Date: 1935 Study Date: 18-Apr-2017 Core Java Software Engineer: Maida Rush [facility] Location: [facility] Ref. Physician: FELICE FUENTES Quality: Technically Difficult Study Procedures: Transthoracic echocardiogram with complete 2D, M-Mode, and doppler examination. Indications: LE Swelling. 2D/M Mode Doppler Measurement Value Normal Ranges Measurement Value Normal Ranges LVIDd 2D 3.7 3.5 - 5.6 cm AUTUMN Vmax 2.2 cm2 LVIDs 2D 2.0 2.1 - 4.1 cm AUTUMN VTI 2.4 cm2 FS 2D 44.9 % AV Mean Chente 1.7 m/sec LVPWd 2D 1.3 0.6 - 1.1 cm AV Mean PG 13.0 mmHg IVSd 2D 1.4 0.6 - 1.1 cm AV Peak Chente 2.5 m/sec IVS/LVPW 2D 1.0 AV Peak PG 25.0 mmHg AoR Diam 2D 2.7 2.0 - 3.7 cm AV VTI 42.4 cm LA/Ao 2D 1 0 - 1 AI Peak PG 57.0 mmHg EDV 2D 50.7 cm3 AI Peak Chente 3.8 m/sec ESV 2D 8.5 cm3 AI PHT 397.0 msec LA Dimen 2D 3.9 2.3 - 4.0 cm LVOT Mean Chente 1.0 m/sec LVOT Diam 2.2 cm LVOT Mean PG 5.0 mmHg LVOT Area 3.8 cm2 LVOT Peak Chente 1.5 m/sec LVOT Peak PG 9.0 mmHg LVOT VTI 26.5 cm MV E Peak Chente 1.0 m/sec MV A Peak Chente 1.6 m/sec MV E/A 0.6 MV Decel Time 151 msec MV E/A 0.6 TR Peak Chente 2.7 m/sec TR Peak PG 30.0 mmHg RVSP 33.0 mmHg Findings Left Ventricle: Normal left ventricular systolic function. Normal left ventricular cavity size. Moderate concentric left ventricular hypertrophy. Ejection fraction is visually estimated at 65 %. Tissue Doppler/Mitral Doppler indices are consistent with impaired relaxation (Stage I diastolic dysfunction). Right Ventricle: Normal right ventricular size. Normal right ventricular systolic function. Left Atrium: The left atrium is normal in size. Right Atrium: The right atrium is normal in size. Mitral Valve: Mitral valve leaflets appear mildly thickened. Moderate mitral annular calcification. Trace mitral regurgitation. Aortic Valve: Mild aortic stenosis. Aortic cusps appear mildly calcified. Mild to moderate aortic valve regurgitation. Tricuspid Valve: Normal appearance and function of the tricuspid valve with trace physiologic regurgitation. Estimated peak PA systolic pressure 33 mmHg. Pulmonic Valve: Normal pulmonic valve appearance. There is mild pulmonic regurgitation. Pericardium: Normal pericardium with no significant pericardial effusion. Aorta: Normal aortic root. IVC: Normal size and normal respiratory collapse consistent with normal right atrial pressure. Conclusions 1.Normal left ventricular systolic function. Normal left ventricular cavity size. Moderate concentric left ventricular hypertrophy. Ejection fraction is visually estimated at 65 %. Tissue Doppler/Mitral Doppler indices are consistent with impaired relaxation (Stage I diastolic dysfunction). 2.Normal right ventricular size. Normal right ventricular systolic function. 3.The left atrium is normal in size. 4.The right atrium is normal in size. 5.Mild aortic stenosis. Mild to moderate aortic valve regurgitation. 6.There is mild pulmonic regurgitation. 7.No significant valvular stenosis or regurgitation seen of remaining visualized valves. 8.Normal pericardium with no significant pericardial effusion. Electronically Signed By: Jeremi Hardin 18-Apr-2017 15:25:59 -0800 Patient Name: ABI BRAVO Study Date: 18-Apr-2017 [id number]
[2017-04-18 20:00] VITALS: BP 135/66; RESP 19
[2017-04-18] MEDS: ATORVASTATIN 10 MG TAB PO SCH (20:31)
[2017-04-18] MEDS: EZETIMIBE 10 MG TAB PO SCH (22:30)
[2017-04-19 02:00] VITALS: BP_SYST 125; BP_SYST 130; BP_DIAS 65; BP_DIAS 80; PULSE 80; RESP 19; RESP 20
--- NOTE | 2017-04-19 06:44 | RADRPT ---
PROCEDURE: XR Shoulder. CLINICAL INDICATION: Right shoulder pain TECHNIQUE: Two views of the right shoulder are available for review. COMPARISON: None available FINDINGS: The osseous structures demonstrate normal alignment and mineralization. No acute fracture or disloc ation is seen. Ulnohumeral joint is not well visualized secondary to patient positioning there are d egenerative changes of the acromioclavicular joint. No soft tissue abnormalities appreciated. The v isualized portion of the right lung is clear. IMPRESSION: Limited evaluation secondary to patient positioning. The glenohumeral joint is not well visualized. No acute fracture is seen. RPTAT: HH .Ade North MD, MD Date Time Electronically viewed and signed by .Ade North MD, on 04/19/2017 06:44 .G/
[2017-04-19 08:13] VITALS: BP 140/75; RESP 20
[2017-04-19] MEDS: CEFTRIAXONE 1 GM/50 ML (PMX) 50 ML IVPB SCH ×2 (08:15→21:50)
[2017-04-19] MEDS: CHOLECALCIFEROL 1,000 UNIT TAB PO SCH (08:15)
[2017-04-19] MEDS: ASPIRIN (EC) 81 MG TAB PO SCH (08:16)
[2017-04-19] MEDS: AMLODIPINE 10 MG TAB PO SCH (08:16)
[2017-04-19] MEDS: TOLTERODINE (SR) 4 MG CAP PO SCH (08:16)
[2017-04-19] MEDS: HEPARIN 5,000 UNIT/0.5 ML VIAL SC SCH ×3 (08:17→21:54)
--- NOTE | 2017-04-19 14:24 | PN ---
Date/Time of Note Date/Time of Note DATE: 04/19/17 TIME: 14:22 Assessment/Plan VTE Prophylaxis VTE Prophylaxis Intervention: SCD's Lines/Catheters IV Catheter Type (from Nrs): Saline Lock Urinary Cath still in place: No Assessment/Plan Assessment/Plan 1. UTI, on rocephin, follow up with culture 2. Sepsis, improved 3. HTN, controlled 4. Dyslipidemia, 5. Acute encephalopathy, sepsis related, resolved 6. DVT prophylaxis: lovenox Subjective 24 Hr Interval Summary Free Text/Dictation alert and oriented to his baseline mentally according to his . weak Exam/Review of Systems Vital Signs Vitals Vital Signs Date Time Temp Pulse Resp B/P Pulse Ox O2 Delivery O2 Flow Rate FiO2 04/19/17 08:43 2.0 04/19/17 08:13 98.8 89 20 140/75 96 04/19/17 02:00 Room Air Intake and Output 04/18/17 04/18/17 04/19/17 14:59 22:59 06:59 Intake Total 50 ml 360 ml 300 ml Balance 50 ml 360 ml 300 ml Exam Constitutional: alert, oriented, well developed Psych: nl mood/affect, no complaints Head: atraumatic, normocephalic Eyes: EOMI, nl conjunctiva, nl lids ENMT: nl external ears & nose, nl lips & teeth, nl nasal mucosa & septum Neck: non-tender, supple Respiratory: clear to auscultation, normal air movement, No congested cough, No crackles/rales, No diminished breath sounds, No intercostal retraction, No labored breathing, No other, No respirations, No tactile fremitus, No wheezing Cardiovascular: nl pulses, regular rate and rhythm, No S3, No S4, No bruits, No diastolic murmur, No edema, No gallop, No irregular rhythm, No jugular venous distention (JVD), No murmurs/extra sounds, No other, No rub, No systolic murmur Gastrointestinal: nl liver, spleen, non-tender, soft, No ascites, No bowel sounds, No distended, No firm, No hepatomegaly, No mass , No other, No rebound or guarding, No splenomegaly, No surgical scars, No tender Musculoskeletal: nl extremities to inspection Extremities: normal pulses Neurological: FORGE TENDER II-XII intact, nl mental status, nl speech Results Result Diagram: 04/18/17 0511 04/18/17 0511 Medications Medications Current Medications Amlodipine Besylate (Norvasc) 10 mg DAILY PO Last administered on 04/19/17 08 :16; Admin Dose 10 MG; Start 04/18/17 at 09:00 Aspirin (Halfprin) 81 mg DAILY PO Last administered on 04/19/17 08:16; Admin Dose 81 MG; Start 04/18/17 at 09:00 Celecoxib (Celebrex) 100 mg DAILY PRN PO PAIN Last administered on 04/18/17 22 :29; Admin Dose 100 MG; Start 04/18/17 at 01:00 Cholecalciferol 1000 unit 1,000 unit DAILY PO Last administered on 04/19/17 08:15; Admin Dose 1,000 UNIT; Start 04/18/17 at 09:00 Ceftriaxone Sodium (Rocephin) 50 ml @ 100 mls/hr Q12 IVPB Last administered on 04/19/17 08:15; Admin Dose 100 MLS/HR; Start 04/18/17 at 09:00 Acetaminophen (Tylenol Tab) 650 mg Q6H PRN PO PAIN AND OR ELEVATED TEMP Last administered on 04/18/17 08:41; Admin Dose 650 MG; Start 04/18/17 at 01:00 Ondansetron HCl (Zofran Inj) 4 mg Q6H PRN IV NAUSEA AND/OR VOMITING; Start 04/18/17 at 01:00 Morphine Sulfate (morphine) 2 mg Q4H PRN IV PAIN Last administered on 05:37; Admin Dose 2 MG; Start 04/18/17 at 01:00 Heparin Sodium (Porcine) (Heparin (5000 Units/0.5 ml)) 5,000 unit BID SC Last administered on 04/18/17 20:34; Admin Dose 5,000 UNIT; Start 04/18/17 at 09:00 Tolterodine Tartrate (Detrol La) 4 mg DAILY PO Last administered on 04/19/17 08:16; Admin Dose 4 MG; Start 04/19/17 at 09:00 EZETIMIBE (Zetia) 10 mg DAILY@21 PO Last administered on 04/18/17 22:30; Admin Dose 10 MG; Start 04/18/17 at 21:00 Atorvastatin Calcium (Lipitor) 10 mg DAILY@21 PO Last administered on t 20:31; Admin Dose 10 MG; Start 04/18/17 at 21:00 Miscellaneous Information Patients own medicat... BID@ XX ; Start at 10:00 VILMA MENDEZ MD Apr 19, 2017 14:24
[2017-04-19 15:04] VITALS: BP 126/65; RESP 18
[2017-04-19] MEDS ORDERED: BISACODYL (EC) 5 MG TAB PO PRN (16:00)
[2017-04-19] MEDS ORDERED: BISACODYL (EC) 5 MG TAB PO ONE (16:00)
[2017-04-19 20:13] VITALS: BP 144/75; RESP 19
[2017-04-19] MEDS: EZETIMIBE 10 MG TAB PO SCH (21:50)
[2017-04-19] MEDS: ATORVASTATIN 10 MG TAB PO SCH (21:50)
[2017-04-20 02:25] VITALS: BP 123/63; RESP 19
[2017-04-20 07:35] VITALS: BP 137/63; RESP 18
[2017-04-20] MEDS: CHOLECALCIFEROL 1,000 UNIT TAB PO SCH (08:57)
[2017-04-20] MEDS: TOLTERODINE (SR) 4 MG CAP PO SCH (08:57)
[2017-04-20] MEDS: ASPIRIN (EC) 81 MG TAB PO SCH (08:57)
[2017-04-20] MEDS: AMLODIPINE 10 MG TAB PO SCH (08:57)
[2017-04-20] MEDS: CEFTRIAXONE 1 GM/50 ML (PMX) 50 ML IVPB SCH ×2 (08:58→20:34)
[2017-04-20] MEDS: HEPARIN 5,000 UNIT/0.5 ML VIAL SC SCH ×2 (09:00→20:35)
--- NOTE | 2017-04-20 13:21 | PN ---
Date/Time of Note Date/Time of Note DATE: 04/20/17 TIME: 13:19 Assessment/Plan VTE Prophylaxis VTE Prophylaxis Intervention: LMWH Lines/Catheters IV [facility] Saline Lock Urinary Cath still in place: No Assessment/Plan Chief Complaint/Hosp Course 1. Sepsis with acute metabolic encephalopathy secondary to UTI-improved Continue Rocephin 2. Hypertension Controlled on meds 3. Dyslipidemia Continue statin Prophylaxis: Lovenox Problems: Subjective 24 Hr Interval Summary Constitutional: no complaints Exam/Review of Systems Vital Signs Vitals Vital Signs Date Time Temp Pulse Resp B/P Pulse Ox O2 Delivery O2 Flow Rate FiO2 04/20/17 07:35 98.5 77 18 137/63 94 04/19/17 20:00 Nasal Cannula 2.0 Intake and Output 04/19/17 04/19/17 04/20/17 15:00 23:00 07:00 Intake Total 50 ml 1470 ml 250 ml Balance 50 ml 1470 ml 250 ml Exam Constitutional: alert, oriented Respiratory: clear to auscultation Cardiovascular: regular rate and rhythm Gastrointestinal: soft, No distended Musculoskeletal: nl extremities to inspection Results Result Diagram: 04/18/1751004/18/17 0511 Medications Medications Current Medications Amlodipine Besylate (Norvasc) 10 mg DAILY PO Last administered on 04/20/17 08 :57; Admin Dose 10 MG; Start 04/18/17 at 09:00 Aspirin (Halfprin) 81 mg DAILY PO Last administered on 04/20/17 08:57; Admin Dose 81 MG; Start 04/18/17 at 09:00 Celecoxib (Celebrex) 100 mg DAILY PRN PO PAIN Last administered on 04/18/17 22 :29; Admin Dose 100 MG; Start 04/18/17 at 01:00 Cholecalciferol 1000 unit 1,000 unit DAILY PO Last administered on 04/20/17 08:57; Admin Dose 1,000 UNIT; Start 04/18/17 at 09:00 Ceftriaxone Sodium (Rocephin) 50 ml @ 100 mls/hr Q12 IVPB Last administered on 04/20/17 08:58; Admin Dose 100 MLS/HR; Start 04/18/17 at 09:00 Acetaminophen (Tylenol Tab) 650 mg Q6H PRN PO PAIN AND OR ELEVATED TEMP Last administered on 04/18/17 08:41; Admin Dose 650 MG; Start 04/18/17 at 01:00 Ondansetron HCl (Zofran Inj) 4 mg Q6H PRN IV NAUSEA AND/OR VOMITING; Start 04/18/17 at 01:00 Morphine Sulfate (morphine) 2 mg Q4H PRN IV PAIN Last administered on 05:37; Admin Dose 2 MG; Start 04/18/17 at 01:00 Heparin Sodium (Porcine) (Heparin (5000 Units/0.5 ml)) 5,000 unit BID SC Last administered on 04/19/17 21:54; Admin Dose 5,000 UNIT; Start 04/18/17 at 09:00 Tolterodine Tartrate (Detrol La) 4 mg DAILY PO Last administered on 04/20/17 08:57; Admin Dose 4 MG; Start 04/19/17 at 09:00 EZETIMIBE (Zetia) 10 mg DAILY@21 PO Last administered on 04/19/17 21:50; Admin Dose 10 MG; Start 04/18/17 at 21:00 Atorvastatin Calcium (Lipitor) 10 mg DAILY@21 PO Last administered on 21:50; Admin Dose 10 MG; Start 04/18/17 at 21:00 Miscellaneous Information Patients own medicat... BID@ XX ; Start at 10:00 ANA BUSTAMANTE Apr 20, 2017 13:21
[2017-04-20 20:00] VITALS: BP 158/81; RESP 19
[2017-04-20] MEDS: EZETIMIBE 10 MG TAB PO SCH (20:34)
[2017-04-20] MEDS: ATORVASTATIN 10 MG TAB PO SCH (20:34)
[2017-04-20] MEDS ORDERED: AZELASTINE 0.05% 6 ML OPH LEFT EYE ONE (21:00)
[2017-04-21 02:00] VITALS: BP 133/61; RESP 19
[2017-04-21 07:48] VITALS: BP 143/83; RESP 17
[2017-04-21] MEDS: HEPARIN 5,000 UNIT/0.5 ML VIAL SC SCH ×3 (09:00→20:33)
[2017-04-21] MEDS: CEFTRIAXONE 1 GM/50 ML (PMX) 50 ML IVPB SCH ×2 (09:59→20:32)
[2017-04-21] MEDS: AZELASTINE 0.05% 6 ML OPH LEFT EYE SCH ×2 (09:59→20:33)
[2017-04-21] MEDS: ASPIRIN (EC) 81 MG TAB PO SCH (09:59)
[2017-04-21] MEDS: CHOLECALCIFEROL 1,000 UNIT TAB PO SCH (09:59)
[2017-04-21] MEDS: TOLTERODINE (SR) 4 MG CAP PO SCH (09:59)
[2017-04-21] MEDS: AMLODIPINE 10 MG TAB PO SCH (09:59)
[2017-04-21 10:25] LABS: BASOPHILS % 0.6 % (0.0-2.0); EOSINOPHILS # 0.2 10^3/ul (0.0-0.5); EOSINOPHILS % 2.4 % (0.0-7.0); HEMOGLOBIN 15.2 g/dl (14.0-18.0); LYMPHOCYTES # 1.3 10^3/ul (0.8-2.9); LYMPHOCYTES % 18.1 % (15.0-51.0); MEAN CORPUSCULAR HGB CONC 33.8 g/dl (32.0-37.0); MEAN CORPUSCULAR VOLUME 91.6 fl (82.0-101.0); MEAN PLATELET VOLUME 9.8 fl (7.4-10.4); MONOCYTE # 0.5 10^3/ul (0.3-0.9); MONOCYTES % 7.3 % (0.0-11.0); NEUTROPHILS % 70.9 % (39.0-77.0); PLATELET COUNT 267 10^3/UL (140-415); RED BLOOD COUNT 4.91 10^6/ul (4.70-6.10); RED CELL DISTRIBUTION WIDTH 12.4 % (11.5-14.5); WHITE BLOOD COUNT 7.1 10^3/ul (4.8-10.8)
[2017-04-21 10:43] LABS: CALCIUM 8.8 mg/dl (8.4-10.2); CREATININE 0.78 mg/dl (0.61-1.24); POTASSIUM 3.9 mmol/L (3.5-5.1)
[2017-04-21 14:07] VITALS: BP 144/99; RESP 17
--- NOTE | 2017-04-21 18:48 | PN ---
Date/Time of Note Date/Time of Note DATE: 04/21/17 TIME: 18:46 Assessment/Plan VTE Prophylaxis VTE Prophylaxis Intervention: LMWH Lines/Catheters IV Catheter Type (from [facility]): Saline Lock Urinary Cath still in place: No Assessment/Plan Chief Complaint/Hosp Course 1. Sepsis with acute metabolic encephalopathy secondary to UTI-improved Continue Rocephin 2. Hypertension Controlled on meds 3. Dyslipidemia Continue statin 4. Debility Patient has not been ambulating for a while now and would like to place patient in a custodial funeral location manager arranging for custodial placement 5. Conjunctivitis of the left eye Cipro drops in the left eye Patient has also been started on Optivar Prophylaxis: Lovenox Problems: Subjective 24 Hr Interval Summary Eyes: redness Exam/Review of Systems Vital Signs Vitals Vital Signs Date Time Temp Pulse Resp B/P Pulse Ox O2 Delivery O2 Flow Rate FiO2 04/21/17 14:07 97.6 81 17 144/99 100 04/19/17 20:00 Nasal Cannula 2.0 Intake and Output 04/20/17 04/20/17 04/21/17 14:59 22:59 06:59 Intake Total 50 ml 850 ml 325 ml Balance 50 ml 850 ml 325 ml Exam Constitutional: alert Respiratory: clear to auscultation Cardiovascular: regular rate and rhythm Gastrointestinal: soft, No distended Musculoskeletal: nl extremities to inspection Results Result Diagram: 04/21/17 0941 04/21/17 0941 Results 24 hrs Laboratory Tests Test 04/21/17 09:41 White Blood Count 7.1 # Red Blood Count 4.91 Hemoglobin 15.2 Hematocrit 45.0 Mean Corpuscular Volume 91.6 Mean Corpuscular Hemoglobin 31.0 Mean Corpuscular Hemoglobin Concent 33.8 Red Cell Distribution Width 12.4 Platelet Count 267 # Mean Platelet Volume 9.8 Neutrophils % 70.9 Lymphocytes % 18.1 Monocytes % 7.3 Eosinophils % 2.4 Basophils % 0.6 Nucleated Red Blood Cells % 0.0 Neutrophils # 5.0 Lymphocytes # 1.3 Monocytes # 0.5 Eosinophils # 0.2 Basophils # 0.0 Nucleated Red Blood Cells # 0.0 Sodium Level 141 Potassium Level 3.9 Chloride Level 106 Carbon Dioxide Level 24 Anion Gap 15 Blood Urea Nitrogen 13 Creatinine 0.78 Glucose Level 160 Calcium Level 8.8 Medications Medications Current Medications Amlodipine Besylate (Norvasc) 10 mg DAILY PO Last administered on 04/21/17 09 :59; Admin Dose 10 MG; Start 04/18/17 at 09:00 Aspirin (Halfprin) 81 mg DAILY PO Last administered on 04/21/17 09:59; Admin Dose 81 MG; Start 04/18/17 at 09:00 Celecoxib (Celebrex) 100 mg DAILY PRN PO PAIN Last administered on 04/18/17 22 :29; Admin Dose 100 MG; Start 04/18/17 at 01:00 Cholecalciferol 1000 unit 1,000 unit DAILY PO Last administered on 04/21/17 09:59; Admin Dose 1,000 UNIT; Start 04/18/17 at 09:00 Ceftriaxone Sodium (Rocephin) 50 ml @ 100 mls/hr Q12 IVPB Last administered on 04/21/17 09:59; Admin Dose 100 MLS/HR; Start 04/18/17 at 09:00 Acetaminophen (Tylenol Tab) 650 mg Q6H PRN PO PAIN AND OR ELEVATED TEMP Last administered on 04/18/17 08:41; Admin Dose 650 MG; Start 04/18/17 at 01:00 Ondansetron HCl (Zofran Inj) 4 mg Q6H PRN IV NAUSEA AND/OR VOMITING; Start 04/18/17 at 01:00 Morphine Sulfate (morphine) 2 mg Q4H PRN IV PAIN Last administered on 05:37; Admin Dose 2 MG; Start 04/18/17 at 01:00 Heparin Sodium (Porcine) (Heparin (5000 Units/0.5 ml)) 5,000 unit BID SC Last administered on 04/20/17 20:35; Admin Dose 5,000 UNIT; Start 04/18/17 at 09:00 Tolterodine Tartrate (Detrol La) 4 mg DAILY PO Last administered on 04/21/17 09:59; Admin Dose 4 MG; Start 04/19/17 at 09:00 EZETIMIBE (Zetia) 10 mg DAILY@21 PO Last administered on 04/20/17 20:34; Admin Dose 10 MG; Start 04/18/17 at 21:00 Atorvastatin Calcium (Lipitor) 10 mg DAILY@21 PO Last administered on 20:34; Admin Dose 10 MG; Start 04/18/17 at 21:00 Miscellaneous Information Patients own medicat... BID@ XX ; Start at 10:00 Azelastine HCl (Optivar 0.05% Oph) 1 drop BID LEFT EYE Last administered on t 09:59; Admin Dose 1 DROP; Start 04/21/17 at 09:00 ANA BUSTAMANTE Apr 21, 2017 18:48
[2017-04-21] MEDS ORDERED: CIPROFLOXACIN 0.3% 2.5 ML OPH LEFT EYE ONE (19:00)
[2017-04-21 20:28] VITALS: BP 134/64; RESP 19
[2017-04-21] MEDS: ACETAMINOPHEN 325 MG TAB PO PRN (20:33)
[2017-04-21] MEDS: EZETIMIBE 10 MG TAB PO SCH (20:33)
[2017-04-21] MEDS: ATORVASTATIN 10 MG TAB PO SCH (20:33)
[2017-04-22 02:00] VITALS: BP 134/83; RESP 18
[2017-04-22 07:53] VITALS: BP 121/58; RESP 20
[2017-04-22] MEDS: HEPARIN 5,000 UNIT/0.5 ML VIAL SC SCH ×4 (08:56→20:50)
[2017-04-22] MEDS: CEFTRIAXONE 1 GM/50 ML (PMX) 50 ML IVPB SCH ×2 (08:56→20:31)
[2017-04-22] MEDS: CHOLECALCIFEROL 1,000 UNIT TAB PO SCH (08:57)
[2017-04-22] MEDS: AZELASTINE 0.05% 6 ML OPH LEFT EYE SCH ×2 (08:57→20:37)
[2017-04-22] MEDS: ASPIRIN (EC) 81 MG TAB PO SCH (08:57)
[2017-04-22] MEDS: TOLTERODINE (SR) 4 MG CAP PO SCH (08:57)
[2017-04-22] MEDS: AMLODIPINE 10 MG TAB PO SCH (08:58)
[2017-04-22 14:35] VITALS: BP 114/51; RESP 18
--- NOTE | 2017-04-22 17:25 | PN ---
Date/Time of Note Date/Time of Note DATE: 04/22/17 TIME: 17:24 Assessment/Plan VTE Prophylaxis VTE Prophylaxis Intervention: LMWH Lines/Catheters IV C[facility]ter Type [facility]from [facility] Saline Lock Urinary Cath still in place: No Assessment/Plan Chief Complaint/Hosp Course 81 yo male wtih cogntiive impairment presenitng with UTI and sepsis 1. Sepsis with acute metabolic encephalopathy secondary to UTI-improved Continue Rocephin 2. Hypertension Controlled on meds 3. Dyslipidemia Continue statin 4. Debility Patient has not been ambulating for a while now and would like to place patient in a intermediate data center manager arranging for intermediate placement 5. Conjunctivitis of the left eye Cipro drops in the left eye Patient has also been started on Optivar Prophylaxis: Lovenox Problems: Subjective 24 Hr Interval Summary Free Text/Dictation Clinically improved on ceftriaxone Refusing HSQ Exam/Review of Systems Vital Signs Vitals Vital Signs Date Time Temp Pulse Resp B/P Pulse Ox O2 Delivery O2 Flow Rate FiO2 04/22/17 14:35 98.8 77 18 114/51 96 04/19/17 20:00 Nasal Cannula 2.0 Intake and Output 04/21/17 04/21/17 04/22/17 15:00 23:00 07:00 Intake Total 50 ml 990 ml 250 ml Output Total 300 ml Balance 50 ml 990 ml -50 ml Exam Constitutional: alert, oriented, well developed Psych: nl mood/affect, no complaints Head: atraumatic, normocephalic Eyes: EOMI, PERRL, nl conjunctiva, nl lids, nl sclera ENMT: nl external ears & nose, nl lips & teeth, nl nasal mucosa & septum Neck: non-tender, supple Respiratory: clear to auscultation, normal air movement Cardiovascular: nl pulses, regular rate and rhythm Gastrointestinal: nl liver, spleen, non-tender, soft Musculoskeletal: nl extremities to inspection, nl gait and stance Extremities: normal pulses Neurological: OFFSET PRESS ASSISTANT II-XII intact, nl mental status, nl speech, nl strength Skin: nl turgor, No rash or lesions Lymph: nl lymph nodes Results Result Diagram: 04/21/1794004/21/17940 Medications Medications Current Medications Amlodipine Besylate (Norvasc) 10 mg DAILY PO Last administered on 04/22/17t 08 :58; Admin Dose 10 MG; Start 04/18/17 at 09:00 Aspirin (Halfprin) 81 mg DAILY PO Last administered on 04/22/17 08:57; Admin Dose 81 MG; Start 04/18/17 at 09:00 Celecoxib (Celebrex) 100 mg DAILY PRN PO PAIN Last administered on 04/18/17 22 :29; Admin Dose 100 MG; Start 04/18/17 at 01:00 Cholecalciferol 1000 unit 1,000 unit DAILY PO Last administered on 04/22/17 08:57; Admin Dose 1,000 UNIT; Start 04/18/17 at 09:00 Ceftriaxone Sodium (Rocephin) 50 ml @ 100 mls/hr Q12 IVPB Last administered on 04/22/17 08:56; Admin Dose 100 MLS/HR; Start 04/18/17 at 09:00 Acetaminophen (Tylenol Tab) 650 mg Q6H PRN PO PAIN AND OR ELEVATED TEMP Last administered on 04/21/17 20:33; Admin Dose 650 MG; Start 04/18/17 at 01:00 Ondansetron HCl (Zofran Inj) 4 mg Q6H PRN IV NAUSEA AND/OR VOMITING; Start 04/18/17 at 01:00 Morphine Sulfate (morphine) 2 mg Q4H PRN IV PAIN Last administered on 05:37; Admin Dose 2 MG; Start 04/18/17 at 01:00 Heparin Sodium (Porcine) (Heparin (5000 Units/0.5 ml)) 5,000 unit BID SC Last administered on 04/20/17 20:35; Admin Dose 5,000 UNIT; Start 04/18/17 at 09:00 Tolterodine Tartrate (Detrol La) 4 mg DAILY PO Last administered on 04/22/17 08:57; Admin Dose 4 MG; Start 04/19/17 at 09:00 EZETIMIBE (Zetia) 10 mg DAILY@21 PO Last administered on 04/21/17 20:33; Admin Dose 10 MG; Start 04/18/17 at 21:00 Atorvastatin Calcium (Lipitor) 10 mg DAILY@21 PO Last administered on 20:33; Admin Dose 10 MG; Start 04/18/17 at 21:00 Miscellaneous Information Patients own medicat... BID@10, XX ; Start at 10:00 Azelastine HCl (Optivar 0.05% Oph) 1 drop BID LEFT EYE Last administered on t 08:57; Admin Dose 1 DROP; Start 04/21/17 at 09:00 KELLY LEMOS MD Apr 22, 2017 17:25
[2017-04-22] MEDS: ATORVASTATIN 10 MG TAB PO SCH (20:31)
[2017-04-22] MEDS: EZETIMIBE 10 MG TAB PO SCH (20:36)
[2017-04-22] MEDS: ACETAMINOPHEN 325 MG TAB PO PRN (20:38)
[2017-04-22 21:40] VITALS: BP 133/82; RESP 19
[2017-04-23 02:36] VITALS: BP 142/80; RESP 19
[2017-04-23 07:47] VITALS: BP 135/79; RESP 22
[2017-04-23] MEDS: CEFTRIAXONE 1 GM/50 ML (PMX) 50 ML IVPB SCH (08:33)
[2017-04-23] MEDS: CHOLECALCIFEROL 1,000 UNIT TAB PO SCH (08:35)
[2017-04-23] MEDS: AZELASTINE 0.05% 6 ML OPH LEFT EYE SCH (08:35)
[2017-04-23] MEDS: AMLODIPINE 10 MG TAB PO SCH (08:36)
[2017-04-23] MEDS: HEPARIN 5,000 UNIT/0.5 ML VIAL SC SCH ×2 (08:36→08:44)
[2017-04-23] MEDS: ASPIRIN (EC) 81 MG TAB PO SCH (08:36)
[2017-04-23] MEDS ORDERED: OCULAR LUBRICANT 3.5 GM OPH OINT LEFT EYE ONE (11:30)
[2017-04-23] MEDS: CIPROFLOXACIN 0.3% 2.5 ML OPH LEFT EYE SCH ×2 (12:22→16:37)
[2017-04-23 14:48] VITALS: BP 131/75; RESP 18
--- NOTE | 2017-04-23 18:26 | DS ---
Date/Time of Note Date/Time of Note DATE: 04/23/17 TIME: 18:25 Discharge Summary Admission/Discharge Info Admit Date/Time Apr 17, 2017 at 21:56 Discharge Date/Time Apr 23, 2017 at 17:15 Discharge Diagnosis UTI Patient Condition: Fair Hx of Present Illness This is an 81-year-old male with history of hypertension, dyslipidemia, arthritis who was brought to the emergency department complaining of bilateral lower extremity swelling, fever and altered mentation. Patient unable to give meaningful history, but reported frequent urination and progressively worsening bilateral lower extremity swelling. When he comes to the ER, he was febrile with a temperature of 100.8, heart rate 103. Labs shows a WBC of 16,000 and lactic acid of 2.2. Urinalysis is consistent with UTI. Hospital Course 81 yo male wtih cogntiive impairment presenitng with UTI and sepsis Patient was treated for urosepsis with ceftriaxone He also had a bacterial conjunctivitis which was treated with cipro gtt and improved He was transfered to SNF for further management Continue Rocepmen Home Meds Reported Medications Celecoxib* (Celebrex*) 100 Mg Capsule, 100 MG PO DAILY Y for PAIN, CAP 04/18/17 Cholecalciferol* (Vitamin D3*) 1,000 Unit Tablet, 1000 UNIT PO DAILY, TAB 08/13/16 Mirabegron (Myrbetriq) 50 Mg Tab.er.24h, 25 MG PO DAILY, TAB 08/13/16 Herbal Drugs (Colon Herbal Cleanser) 1 Each Capsule, 1 EACH PO DAILY, CAP 08/13/16 Aspirin* (Aspirin* EC) 81 Mg Tablet.dr, 81 MG PO DAILY, TAB 08/13/16 Ezetimibe/Simvastatin (Vytorin 10-20 mg Tablet) 1 Each Tablet, 1 EACH PO DAILY, TAB 08/13/16 Amlodipine Besylate* (Amlodipine Besylate*) 10 Mg Tablet, 10 MG PO DAILY, #30 TAB 08/13/16 Metoprolol Succinate* (Toprol XL*) 100 Mg Tab.sr.24h, 100 MG PO DAILY, #30 TAB 08/13/16 Discontinued Reported Medications Celecoxib* (Celebrex*) 100 Mg Capsule, 100 MG PO BID, CAP 08/13/16 [Ultra Supplements] No Conflict Check, 1 TAB PO DAILY 08/13/16 Primary Care Provider KELLY Sanchez MD Apr 23, 2017 18:26
== END 2017-04-23 17:15 | DRG 871 ==
LOC: E/R 19:03 → PP2 21:56
PROVIDERS: ADMIT Internal Medicine; ATTEND Internal Medicine
DX: A41.9 Sepsis, unspecified organism (principal); G93.41 Metabolic encephalopathy; N39.0 Urinary tract infection, site not specified; I10 Essential (primary) hypertension; R22.43 Localized swelling, mass and lump, lower limb, bilateral; E78.5 Hyperlipidemia, unspecified; H10.89 Other conjunctivitis; R53.81 Other malaise; Z79.82 Long term (current) use of aspirin; Z86.73 Personal history of transient ischemic attack (TIA), and cerebral infarction without residual deficits
CPT/HCPCS: 36415; 70450; 71010; 74176; 80048; 80053; 81001; 83605; 83735; 83880; 84100; 84484; 85025; 85610; 85730; 87040; 87045; 87086; 93005; 93306; 96374; 96375; 97110; 97163; 97530; A4310; J0692; J0696; J1644; J2270; J2405; J3370; J7030; P9047

== ENCOUNTER 2017-06-07 14:16 | Inpatient (IN) | END 2017-06-18 15:25 | disposition home health service (06) | DRG 872 ==

== ENCOUNTER 2019-02-09 17:29 | Inpatient (IN) | payer BC, MEDICARE ==
[~2019-02-09] VITALS: Ht 170.2 cm; Wt 75.0 kg
[~2019-02-09 17:29] MED LIST changes: -ASPI-664 PO; +ASPI-817 PO; +EZET1TAB36 PO; +EZET1TAB66 PO; -EZET1TAB9 PO; +GABA100C14 PO; +GUAI-637 PO; +METF500T24 PO; +TAMS-14 PO; -[UNRECOGNIZED DRUG - OTHER] PO
[2019-02-09] MEDS ORDERED: SOD CHLORIDE 0.9% 1,000 ML IV STA (18:09)
[2019-02-09] MEDS ORDERED: CEFEPIME 1GM/50 ML (PMX) 50 ML IVPB STA (18:09)
[2019-02-09] MEDS ORDERED: VANCOMYCIN 1 GM (PMX) 250 ML IVPB STA (18:09)
[2019-02-09] MEDS ORDERED: ACETAMINOPHEN 500 MG TAB PO STA (18:43)
[2019-02-09] MEDS ORDERED: NACL 0.9% 3 ML SYG IV SCH (21:30)
[2019-02-09] MEDS ORDERED: BISACODYL (EC) 5 MG TAB PO PRN (21:30)
[2019-02-09] MEDS ORDERED: ACETAMINOPHEN 325 MG TAB PO PRN (21:30)
[2019-02-09] MEDS ORDERED: DOCUSATE SODIUM 100 MG CAP PO PRN (21:30)
[2019-02-09] MEDS ORDERED: ONDANSETRON 4 MG INJ IV PRN ×2 (21:30)
[2019-02-10] VITALS: BP 135/73; PULSE 70; RESP 20; Ht 170.2 cm; Wt 75.0 kg
[2019-02-10] MEDS ORDERED: SOD CHLORIDE 0.9% 1,000 ML IV SCH
[2019-02-10] MEDS ORDERED: hydrALAzine 20 MG INJ IV PRN
[2019-02-10] MEDS: MEROPENEM 1 GM/50ML(PMX) 50 ML IVPB SCH ×3 (03:29→20:34)
[2019-02-10 04:00] VITALS: BP 136/67; RESP 18
[2019-02-10 07:40] VITALS: BP 133/72; PULSE 88; RESP 20
[2019-02-10] MEDS: ASPIRIN (EC) 81 MG TAB PO SCH (08:54)
[2019-02-10] MEDS: GABAPENTIN 100 MG CAP PO SCH ×2 (08:54→20:34)
[2019-02-10] MEDS: METOPROLOL (XL) 100 MG TAB PO SCH (08:54)
[2019-02-10] MEDS: CHOLECALCIFEROL 1,000 UNIT TAB PO SCH (08:55)
[2019-02-10] MEDS: AMLODIPINE 10 MG TAB PO SCH (08:55)
[2019-02-10 11:22] VITALS: BP 150/70; PULSE 79; RESP 20
[2019-02-10 16:34] VITALS: BP 135/70; PULSE 74; RESP 20
[2019-02-10] MEDS: ATORVASTATIN 10 MG TAB PO SCH (20:34)
[2019-02-10] MEDS: TAMSULOSIN (SR) 0.4 MG CAP PO SCH (20:34)
[2019-02-10] MEDS: EZETIMIBE 10 MG TAB PO SCH (20:34)
[2019-02-10 20:47] VITALS: BP 136/99; PULSE 77; RESP 16
[2019-02-11 00:49] VITALS: BP 123/66; PULSE 78; RESP 18
[2019-02-11 04:38] VITALS: BP 126/67; PULSE 72; RESP 20
[2019-02-11 07:06] VITALS: BP 112/61; PULSE 79; RESP 17
[2019-02-11] MEDS: GABAPENTIN 100 MG CAP PO SCH ×2 (08:13→21:19)
[2019-02-11] MEDS: METOPROLOL (XL) 100 MG TAB PO SCH (08:13)
[2019-02-11] MEDS: ASPIRIN (EC) 81 MG TAB PO SCH (08:13)
[2019-02-11] MEDS: AMLODIPINE 10 MG TAB PO SCH (08:13)
[2019-02-11] MEDS: CHOLECALCIFEROL 1,000 UNIT TAB PO SCH (08:13)
[2019-02-11] MEDS: MEROPENEM 1 GM/50ML(PMX) 50 ML IVPB SCH ×2 (08:14→21:23)
[2019-02-11 11:00] VITALS: BP 114/64; PULSE 76; RESP 18
[2019-02-11 15:00] VITALS: BP 130/61; PULSE 63; RESP 18
[2019-02-11 20:00] VITALS: BP 128/61; PULSE 64; RESP 18
[2019-02-11] MEDS: ATORVASTATIN 10 MG TAB PO SCH (21:19)
[2019-02-11] MEDS: EZETIMIBE 10 MG TAB PO SCH (21:19)
[2019-02-11] MEDS: TAMSULOSIN (SR) 0.4 MG CAP PO SCH (21:19)
[2019-02-12] VITALS: BP 133/68; PULSE 71; RESP 18
[2019-02-12 04:00] VITALS: BP 119/57; PULSE 67; RESP 18
[2019-02-12 07:56] VITALS: BP 115/75; PULSE 71; RESP 19
[2019-02-12] MEDS: CHOLECALCIFEROL 1,000 UNIT TAB PO SCH (09:15)
[2019-02-12] MEDS: ASPIRIN (EC) 81 MG TAB PO SCH (09:15)
[2019-02-12] MEDS: AMLODIPINE 10 MG TAB PO SCH (09:15)
[2019-02-12] MEDS: GABAPENTIN 100 MG CAP PO SCH ×2 (09:15→21:38)
[2019-02-12] MEDS: METOPROLOL (XL) 100 MG TAB PO SCH (09:15)
[2019-02-12] MEDS: MEROPENEM 1 GM/50ML(PMX) 50 ML IVPB SCH (09:15)
[2019-02-12 11:15] VITALS: BP 128/65; PULSE 67; RESP 18
[2019-02-12 15:29] VITALS: BP 114/56; PULSE 69; RESP 18
[2019-02-12] MEDS: PIPER-TAZO 3.375 GM IV (PMX) 100 ML IVPB SCH (18:24)
[2019-02-12 20:00] VITALS: BP 140/76; PULSE 79; RESP 18
[2019-02-12] MEDS: TAMSULOSIN (SR) 0.4 MG CAP PO SCH (21:38)
[2019-02-12] MEDS: EZETIMIBE 10 MG TAB PO SCH (21:38)
[2019-02-12] MEDS: ATORVASTATIN 10 MG TAB PO SCH (21:39)
[2019-02-13] VITALS: BP 126/64; PULSE 73; RESP 18
[2019-02-13] MEDS: PIPER-TAZO 3.375 GM IV (PMX) 100 ML IVPB SCH ×3 (02:41→18:03)
[2019-02-13 04:00] VITALS: BP 115/58; PULSE 69; RESP 18
[2019-02-13 07:00] VITALS: BP 125/64; PULSE 66; RESP 18
[2019-02-13] MEDS: GABAPENTIN 100 MG CAP PO SCH ×2 (08:36→20:14)
[2019-02-13] MEDS: ASPIRIN (EC) 81 MG TAB PO SCH (08:36)
[2019-02-13] MEDS: CHOLECALCIFEROL 1,000 UNIT TAB PO SCH (08:36)
[2019-02-13] MEDS: METOPROLOL (XL) 100 MG TAB PO SCH (08:37)
[2019-02-13] MEDS: AMLODIPINE 10 MG TAB PO SCH (08:37)
[2019-02-13 11:10] VITALS: BP 131/69; PULSE 78; RESP 19
[2019-02-13] MEDS: ACETAMINOPHEN 325 MG TAB PO PRN ×2 (12:25→20:14)
[2019-02-13 15:00] VITALS: BP 116/76; PULSE 76; RESP 18
[2019-02-13 19:35] VITALS: BP 146/70; PULSE 74; RESP 22
[2019-02-13] MEDS: ATORVASTATIN 10 MG TAB PO SCH (20:13)
[2019-02-13] MEDS: TAMSULOSIN (SR) 0.4 MG CAP PO SCH (20:14)
[2019-02-13] MEDS: EZETIMIBE 10 MG TAB PO SCH (20:14)
[2019-02-14] VITALS: BP 114/69; PULSE 80; RESP 20
[2019-02-14] MEDS: PIPER-TAZO 3.375 GM IV (PMX) 100 ML IVPB SCH ×3 (01:32→18:18)
[2019-02-14 04:00] VITALS: BP 134/65; PULSE 71; RESP 20
[2019-02-14 07:20] VITALS: BP 122/65; PULSE 84; RESP 18
[2019-02-14] MEDS: GABAPENTIN 100 MG CAP PO SCH ×2 (08:21→20:05)
[2019-02-14] MEDS: CHOLECALCIFEROL 1,000 UNIT TAB PO SCH (08:21)
[2019-02-14] MEDS: AMLODIPINE 10 MG TAB PO SCH (08:21)
[2019-02-14] MEDS: ASPIRIN (EC) 81 MG TAB PO SCH (08:21)
[2019-02-14] MEDS: METOPROLOL (XL) 100 MG TAB PO SCH (08:22)
[2019-02-14 11:27] VITALS: BP 111/64; PULSE 64; RESP 18
[2019-02-14 16:02] VITALS: BP 118/78; PULSE 78; RESP 18
[2019-02-14 20:00] VITALS: BP 144/68; PULSE 68; RESP 20
[2019-02-14] MEDS: ATORVASTATIN 10 MG TAB PO SCH (20:05)
[2019-02-14] MEDS: ACETAMINOPHEN 325 MG TAB PO PRN (20:05)
[2019-02-14] MEDS: EZETIMIBE 10 MG TAB PO SCH (20:05)
[2019-02-14] MEDS: TAMSULOSIN (SR) 0.4 MG CAP PO SCH (20:05)
[2019-02-14] MEDS: MELATONIN 3 MG TABLET PO SCH (21:00)
[2019-02-15] VITALS: BP 123/66; PULSE 66; RESP 18
[2019-02-15] MEDS: PIPER-TAZO 3.375 GM IV (PMX) 100 ML IVPB SCH ×2 (02:47→10:17)
[2019-02-15 04:00] VITALS: BP 143/77; PULSE 63; RESP 20
[2019-02-15] MEDS: ACETAMINOPHEN 325 MG TAB PO PRN ×2 (05:05→17:06)
[2019-02-15 07:29] VITALS: BP 134/64; PULSE 63; RESP 18
[2019-02-15] MEDS: GABAPENTIN 100 MG CAP PO SCH ×2 (08:44→21:08)
[2019-02-15] MEDS: CHOLECALCIFEROL 1,000 UNIT TAB PO SCH (08:44)
[2019-02-15] MEDS: ASPIRIN (EC) 81 MG TAB PO SCH (08:44)
[2019-02-15] MEDS: METOPROLOL (XL) 100 MG TAB PO SCH (08:45)
[2019-02-15] MEDS: AMLODIPINE 10 MG TAB PO SCH (08:45)
[2019-02-15 11:35] VITALS: BP 124/66; PULSE 59; RESP 19
[2019-02-15] MEDS: LEVOFLOXACIN 500 MG TAB PO SCH (12:07)
[2019-02-15 15:25] VITALS: BP 133/72; PULSE 68; RESP 18
[2019-02-15 20:00] VITALS: BP 131/73; PULSE 63; RESP 22
[2019-02-15] MEDS: EZETIMIBE 10 MG TAB PO SCH (21:08)
[2019-02-15] MEDS: ATORVASTATIN 10 MG TAB PO SCH (21:08)
[2019-02-15] MEDS: TAMSULOSIN (SR) 0.4 MG CAP PO SCH (21:08)
[2019-02-15] MEDS: MELATONIN 3 MG TABLET PO SCH (21:08)
[2019-02-16] VITALS: BP 131/73; PULSE 71; RESP 21
[2019-02-16 04:00] VITALS: BP 126/70; PULSE 79; RESP 20
[2019-02-16] MEDS: LEVOFLOXACIN 500 MG TAB PO SCH (06:11)
[2019-02-16 07:59] VITALS: BP 125/68; PULSE 76; RESP 20
[2019-02-16] MEDS: CHOLECALCIFEROL 1,000 UNIT TAB PO SCH (08:32)
[2019-02-16] MEDS: METOPROLOL (XL) 100 MG TAB PO SCH (08:33)
[2019-02-16] MEDS: ASPIRIN (EC) 81 MG TAB PO SCH (08:33)
[2019-02-16] MEDS: AMLODIPINE 10 MG TAB PO SCH (08:33)
[2019-02-16] MEDS: GABAPENTIN 100 MG CAP PO SCH ×2 (08:33→20:47)
[2019-02-16 11:07] VITALS: BP 130/70; PULSE 71; RESP 20
[2019-02-16 15:30] VITALS: BP 130/81; PULSE 84; RESP 20
[2019-02-16 20:00] VITALS: BP 128/34; PULSE 87; RESP 20
[2019-02-16] MEDS: EZETIMIBE 10 MG TAB PO SCH (20:47)
[2019-02-16] MEDS: TAMSULOSIN (SR) 0.4 MG CAP PO SCH (20:47)
[2019-02-16] MEDS: ACETAMINOPHEN 325 MG TAB PO PRN (20:47)
[2019-02-16] MEDS: ATORVASTATIN 10 MG TAB PO SCH (20:47)
[2019-02-16] MEDS: MELATONIN 3 MG TABLET PO SCH (20:47)
[2019-02-17] VITALS (8 sets, daily range): BP systolic 104–138; BP diastolic 51–78; PULSE 68–95; RESP 16–20
[2019-02-17] MEDS: LEVOFLOXACIN 500 MG TAB PO SCH (05:48)
[2019-02-17] MEDS: CHOLECALCIFEROL 1,000 UNIT TAB PO SCH (08:34)
[2019-02-17] MEDS: AMLODIPINE 10 MG TAB PO SCH (08:34)
[2019-02-17] MEDS: ASPIRIN (EC) 81 MG TAB PO SCH (08:34)
[2019-02-17] MEDS: METOPROLOL (XL) 100 MG TAB PO SCH (08:35)
[2019-02-17] MEDS: GABAPENTIN 100 MG CAP PO SCH ×2 (08:35→20:58)
[2019-02-17] MEDS: ENOXAPARIN 40 MG/0.4 ML SYG SC SCH (08:42)
[2019-02-17] MEDS: MELATONIN 3 MG TABLET PO SCH (20:57)
[2019-02-17] MEDS: EZETIMIBE 10 MG TAB PO SCH (20:58)
[2019-02-17] MEDS: ATORVASTATIN 10 MG TAB PO SCH (20:58)
[2019-02-17] MEDS: TAMSULOSIN (SR) 0.4 MG CAP PO SCH (20:58)
[2019-02-18] VITALS: BP 106/62; PULSE 75; RESP 18
[2019-02-18 03:47] VITALS: BP 115/62; PULSE 79; RESP 18
[2019-02-18 07:49] VITALS: BP 109/59; PULSE 72; RESP 17
[2019-02-18] MEDS: CHOLECALCIFEROL 1,000 UNIT TAB PO SCH (08:31)
[2019-02-18] MEDS: GABAPENTIN 100 MG CAP PO SCH ×2 (08:31→20:33)
[2019-02-18] MEDS: AMLODIPINE 10 MG TAB PO SCH (08:32)
[2019-02-18] MEDS: ASPIRIN (EC) 81 MG TAB PO SCH (08:32)
[2019-02-18] MEDS: METOPROLOL (XL) 100 MG TAB PO SCH (08:32)
[2019-02-18] MEDS: ENOXAPARIN 40 MG/0.4 ML SYG SC SCH (08:52)
[2019-02-18 11:56] VITALS: BP 122/66; PULSE 71; RESP 18
[2019-02-18 16:00] VITALS: BP 126/69; PULSE 73; RESP 18
[2019-02-18 20:06] VITALS: BP 127/67; PULSE 73; RESP 18
[2019-02-18] MEDS: EZETIMIBE 10 MG TAB PO SCH (20:33)
[2019-02-18] MEDS: ATORVASTATIN 10 MG TAB PO SCH (20:34)
[2019-02-18] MEDS: TAMSULOSIN (SR) 0.4 MG CAP PO SCH (20:34)
[2019-02-18] MEDS: MELATONIN 3 MG TABLET PO SCH (20:34)
[2019-02-19] VITALS: BP 125/70; PULSE 77; RESP 20
[2019-02-19 04:58] VITALS: BP 98/62; PULSE 75; RESP 20
[2019-02-19 07:46] VITALS: BP 136/75; PULSE 71; RESP 22
[2019-02-19] MEDS: GABAPENTIN 100 MG CAP PO SCH (08:38)
[2019-02-19] MEDS: ASPIRIN (EC) 81 MG TAB PO SCH (08:38)
[2019-02-19] MEDS: AMLODIPINE 10 MG TAB PO SCH (08:38)
[2019-02-19] MEDS: CHOLECALCIFEROL 1,000 UNIT TAB PO SCH (08:38)
[2019-02-19] MEDS: METOPROLOL (XL) 100 MG TAB PO SCH (08:38)
[2019-02-19] MEDS: ENOXAPARIN 40 MG/0.4 ML SYG SC SCH (08:41)
[2019-02-19 12:20] VITALS: BP 120/76; PULSE 68; RESP 20
== END 2019-02-19 15:30 | DRG 689 ==
LOC: E/R 17:29 → 6WM 23:59
PROVIDERS: ADMIT Family Medicine; ATTEND Internal Medicine
DX: N39.0 Urinary tract infection, site not specified (principal); G92 Toxic encephalopathy; N17.9 Acute kidney failure, unspecified; I69.954 Hemiplegia and hemiparesis following unspecified cerebrovascular disease affecting left non-dominant side; E11.8 Type 2 diabetes mellitus with unspecified complications; I10 Essential (primary) hypertension; N40.0 Benign prostatic hyperplasia without lower urinary tract symptoms; G93.89 Other specified disorders of brain; F01.50 Vascular dementia, unspecified severity, without behavioral disturbance, psychotic disturbance, mood disturbance, and anxiety
CPT/HCPCS: 36415; 70450; 70551; 71045; 76856; 80053; 80061; 80069; 81001; 83036; 83605; 83735; 85025; 87086; 92526; 92610; 93005; 93306; 96374; 96375; 97110; 97161; 97530; J0692; J1650; J2185; J2405; J2543; J3370; J7030